=== PATIENT | female | born 1985 | race Caucasian/White ===

== ENCOUNTER 2016-09-30 11:49 | Emergency (ER) | payer OTHER ==
[2016-09-30] MEDS ORDERED: METHYLPRED SOD SUCCINATE 125 MG VIAL ONE (12:49)
[2016-09-30] MEDS ORDERED: METHOCARBAMOL 750 MG TABLET ONE (12:49)
== END 2016-09-30 14:07 | disposition home or self-care (01) ==
LOC: ED 11:49
DX: M54.32 Sciatica, left side (principal); E11.9 Type 2 diabetes mellitus without complications; E66.9 Obesity, unspecified; F17.210 Nicotine dependence, cigarettes, uncomplicated; Z79.899 Other long term (current) drug therapy